=== PATIENT | female | born 1990 | race Native Hawaiian/Other Pacific Islander ===

== ENCOUNTER 2024-06-15 10:01 | Emergency (ER) | payer SELFPAY ==
--- OUTSIDE RECORDS SUMMARY | 2024-06-15 10:03 | XMS_ITS | Clinical Summary ---
Author Organization [facility] Address [address] [place] [address] Care Team Providers Care Copra Sampler Name Role Phone Pcp, No Primary Care Provider Unavailabl e Allergies No known active allergies Medications fluconazole (DIFLUCAN) 100 mg tabletIndicatio ns:Yeast vaginitis Take 1 Tablet (100 mg) by mouth once daily for 2 days. Take 48 hours apart. 2 Tablet 05/16/2024 5 metroNIDAZOLE (FLAGYL) 500 mg tabletIndicatio ns:Bacterial vaginosis Take 1 Tablet (500 mg) by mouth two times daily for 10 days. 20 Tablet 05/16/2024 5 Active Problems Problem Noted Date Diagnosed Date Breech presentation at 11/29/2017 Pancreatitis 02/16/2014 Elevated LFTs 01/15/2014 Resolved Problems Problem Noted Date Diagnosed Date Resolved Date 38 weeks gestation of 11/29/2017 01/16/2018 Miscarriage 11/26/2016 11/29/2017 Cholelithiasis with acute cholecystitis 02/19/2014 11/29/2017 Gallstones 01/15/2014 11/29/2017 Routine general medical exam ination at a health care facility 02/27/2013 01/16/2018 Supervision of other normal 06/25/2012 02/27/2013 Overview (11/14/2012): Planned and happy. GBBS positive with first . We will treat with this . Having a boy. Briefly homeless - working with the [facility] on housing 11/14/12. Encounters Date Type Department Care Team Description 05/16/2024 Telephone [facility] [address] [facility] [address] Susy Hyde, SHAYNA Results 05/16/2024 Orders Only [facility] [address] [facility] [place] [address] Susy Hyde NP <No scans attached> 05/15/2024 3:55 PM DATA ENGINEER - 05/15/2024 11:59 PM DATA ENGINEER Hospital Encounter [facility] [address] [facility] [place] [address] Anjali Schroeder NP Menorrhagia with irregular cycle 05/15/2024 2:20 PM DATA ENGINEER Office Visit [facility] [address] [facility] [place] [address] Anjali Schroeder NP Menses Problem (Patient presents to ambulatory urgent care today with C/O having a very heavy menses onset 05/07/2024. She had a normal menses 2 weeks ago that last 3 days. She is having more cramping and fatigue. She is also nauseated and having hot flashes. /) 05/15/2024 Travel 04/02/2024 3:00 PM DATA ENGINEER Office Visit [facility] [address] [facility] [place] [address] Kailey Roberson, OD Eye Exam 04/02/2024 Travel from Last 3 Months Immunizations Name Administration Dates Next Due DTP 11/14/1994, 1,06/20/1989,04/18/1989, 02/19/1989 Hepatitis B (Peds) 05/23/2005,01/23/2002, 001 Human Papilloma Virus Vaccine 04/09/2012 Influenza, IIV3 (Age >=3 years) 01/07/2013,04/04,01/18/2010 Influenza, IIV4 01/16/2018,05/21/2017,02/18/2014 MMR 05/23/2005,03/21/1990 Oral Polio Vaccine 11/14/1994,07/19/1990, 989,02/19/1989 Td (Age >=7 Years) 05/23/2005 Tdap 09/18/2017,06/25/2012 Family History Medical History Relation Name Comments Diabetes Maternal Grandfather Heart Disease Maternal Grandfather Hypertension Maternal Grandfather Diabetes Maternal Grandmother Hypertension Maternal Grandmother Diabetes Paternal Grandfather Diabetes Paternal Grandmother Relation Name Status Comments Maternal Grandfather Maternal Grandmother Paternal Grandfather Paternal Grandmother Social History Tobacco Use Types Packs/Day Years Used Date Smoking Tobacco: Every Day Cigarettes Smokeless Tobacco: Never Tobacco Cessation:Ready to Q uit: Not Asked; Counseling Given: Not Answered Comments:Patient educational material offered: onset 12/30, thinks about quitting Alcohol Use Standard Drinks/Week Comments Not Currently 0 (1 standard drink = 0.6 oz pur e alcohol) occasionally PHQ-2 Answer Date Recorded PHQ-2 Score 6 06/24/2018 Social Connections Answer Date Recorded Do you often feel lonely or isolated from those around you? 4 11/27/2023 Financial Resource Strain Answer Date R ecorded Difficulty of Paying Living Expenses 3 12/26/2023 Difficulty of Paying Living Expenses Not on file 12/26/2023 Food Insecurity Answer Date Recorded Do you worry your food will run out before you are able to buy more? 1 11/27/2023 Transportation Needs Answer Date Record ed Does lack of transportation keep you from medica l appointments? 1 11/27/2023 Does lack of transportation keep you from work, meetings or getting things that you need? 1 11/27/2023 Housing Stability Answer Date Recorded What is your housing situation today? 1 11/27/2023 Utilities Answer Date Recorded Do you have trouble paying f or utilities (for example, heat, electricity, water, phone)? 1 11/27/2023 Comments No Sex and Gender Information Value Date Recorded Sex Assigned at Not on file Legal Sex Female 7:00 AM DATA ENGINEER Gender Identity Not on file Sexual Orientation Not on file Occupation Industry Job Start Date Job End Date [employer] Not on file Not on file Not on file Not on file Not on file Not on file Not on file Obstetrics History Para Term AB IAB SAB Ectopic Multiple Livin g Live Births 5 3 3 1 1 3 3 Date Outcome GA Total Labor Labor/2nd/3rd Weight Sex Type Anes PTL Mildred A1 A5 Name Clin 2007 SAB 8w0 d U SPONTA NEOUS Genera l Demis e Complications:None 2008 Term 39w 0d 2.98 kg (6 lb 9 oz) F Vag Livin g Caram ia Delivery Location:[place] 2012 Term 37w 3d 2.89 kg (6 lb 6 oz) M Vag Livin g 8 9 Lelan d [place] Delivery Location:[facility] 2017 Term 38w 5d 3.53 kg (7 lb 12.7 oz) F CS-LTr anv Spinal N Livin g 8 9 PORRA S,BG MELANIA Macedo Complications:None Delivery Location:[facility] Last Filed Vital Signs Vital Sign Reading Time Taken Comments Blood Pressure 121/78 05/15/2024 3:12 PM DATA ENGINEER Pulse 66 05/15/2024 3:12 PM DATA ENGINEER Temperature 36.8 C (98.2 F) 05/15/2024 3:12 PM DATA ENGINEER Respiratory Rate 14 05/15/2024 3:12 PM DATA ENGINEER Oxygen Saturation 99% 05/15/2024 3:12 PM DATA ENGINEER Inhaled Oxygen Concentration - - Weight 78.5 kg (173 lb) 05/15/2024 3:12 PM DATA ENGINEER Height 165.1 cm (5' 5) 08/12/2022 8:20 PM CDT Body Mass Index 28.79 08/12/2022 8:20 PM CDT Plan of Treatment Health Maintenance Due Date Last Done Comments Hepatitis C screening for ag e 18-79 2006 Pneumococcal series for age 6-49 (1 of 2 - PCV) 12/18/2007 Depression screening for age 12+ 01/16/2019 01/16/2018, 01/16/2018, 11/09/2017, Additional history exists BMI (ht and wt on same day) for age 18+ 11/30/2020 12/01/2019, 11/09/2017, 10/11/2016 Pap test for age 21-65 07/23/2023 , 07/22/2020, 05/21/2017, Additional history exists COVID-19 vaccine series ( season) 2023 04/12/2021, 09/22/2020, 08/25/2020 Influenza for age 9-49 12/23/2023 8, 05/21/2017, 02/18/2014, Additional history exists Tetanus booster 09/19/2027 09/18/2017, 08/2012, 05/23/2005 Tdap Completed 09/18/2017, 06/25/2012 HIV for age 15-65 Completed 12/01/2019, , 06/25/2012 Procedures Procedure Name Priority Date/Time Associated Diagnosis Comments GC CHLAMYDIA TRACH PROBE Routine 05/15/2024 5:09 PM DATA ENGINEER Menorrhagia with irregular cycle TRICHOMONAS, MANDO, AND BACTERIAL VAGINOSIS BY LI Routine 05/15/2024 5:09 PM DATA ENGINEER Menorrhagia with irregular cycle URINE CULTURE Add On 05/15/2024 4:50 PM DATA ENGINEER Menorrhagia with irregular cycle Irregular menstrual bleeding URINALYSIS MICROSCOPIC STAT 05/15/2024 4:50 PM DATA ENGINEER Menorrhagia with irregular cycle URINE STAT 05/15/2024 4:50 PM DATA ENGINEER Menorrhagia with irregular cycle UA W/ SEDIMENT EXAM REFLEXED PER CRITERIA STAT 05/15/2024 4:50 PM DATA ENGINEER Menorrhagia with irregular cycle CBC WITH AUTO DIFFERENTIAL STAT 05/15/2024 4:38 PM DATA ENGINEER Menorrhagia with irregular cycle BASIC METABOLIC PANEL STAT 05/15/2024 4:38 PM DATA ENGINEER Menorrhagia with irregular cycle CBC WITH AUTO DIFFERENTIAL STAT 05/15/2024 4:38 PM DATA ENGINEER Menorrhagia with irregular cycle US PELVIS COMPLETE TA AND TV STAT 05/15/2024 4:30 PM DATA ENGINEER Menorrhagia with irregular cycle TORCH STRAIGHTENER THIN PREP PAP SCREEN IMAGED Routine 07/22/2020 3:15 PM CDT ANTI HIV 1/2 Routine 12/01/2019 5:05 PM CDT Encounter for supervision of other normal in first trimester from Last 3 Months or Most Recently Relevant to Health Maintenance Results * (ABNORMAL) TRICHOMONAS, MANDO, AND BACTERIAL VAGINOSIS BY LI (05/15/2024 5:09 PM DATA ENGINEER) MANDO SPECIES Positive(A) Negative 05/16/19 5:09 AM DATA ENGINEER [facility] MANDO GLABRATA Negative Negative 05/16/2024 5:09 AM DATA ENGINEER [facility] TRICHOMONAS VVA Positive(A) Negative 05/16/19 5:09 AM DATA ENGINEER [facility] BACTERIAL VAGINOSIS Positive(A) Negative 05/16/2024 5:09 AM DATA ENGINEER [facility] Other VAGINAL SWAB / Unknown Non-Blood / Unknown 05/15/2024 5:09 PM DATA ENGINEER 05/15/2024 5:31 PM DATA ENGINEER us Anjali E Furlong RIVET HOLE MACHINE OPERATOR MICROBIOLOGY Final Result Performing Organization Address City/[facility]/ZIP Co de Phone Number [facility] [address] [place] [address], [place] * Vaginal GC CHLAMYDIA TRACH PROBE (05/15/2024 5:09 PM DATA ENGINEER) CHLAMYDIA PROBE Negative 5:36 AM DATA ENGINEER [facility] N GONORRHOEAE PROBE Negative 05/16/2024 5:36 AM DATA ENGINEER [facility] Other VAGINAL SWAB / Unknown Non-Blood / Unknown 05/15/2024 5:09 PM DATA ENGINEER 05/15/2024 5:31 PM DATA ENGINEER us Anjali E Furlong RIVET HOLE MACHINE OPERATOR MICROBIOLOGY Final Result Performing Organization Address City/[facility]/ZIP Co de Phone Number [facility] [address] [place] [phone], [place] * (ABNORMAL) URINALYSIS MICROSCOPIC (05/15/2024 4:50 PM DATA ENGINEER) RBC 6-10(A) 0-2, None Seen /HPF 05/15/2024 6:24 PM DATA ENGINEER [facility] WBC 0-2 0-2, 3-5, None Seen /HPF 05/15/2024 6:24 PM DATA ENGINEER [facility] BACTERIA Many(A) None Seen, Rare, Few Bacteria/H PF 05/15/2024 6:24 PM DATA ENGINEER [facility] EPITHELIAL CELLS Few None Seen, Few Epi/HPF 05/15/2024 6:24 PM DATA ENGINEER [facility] Urine URINE SPECIMEN / Unknown Non-Blood / Unknown 05/15/2024 4:50 PM DATA ENGINEER 05/15/2024 4:50 PM DATA ENGINEER us Anjali E Furlong RIVET HOLE MACHINE OPERATOR URINE Final Result Performing Organization Address [facility]/ZIP Co de Phone Number [facility] [address] [place] [phone] * URINE CULTURE (05/15/2024 4:50 PM DATA ENGINEER) CULTURE <10,000 CFU/mL multiple organisms 05/16/2024 3:01 PM DATA ENGINEER [facility] Urine URINE SPECIMEN / Unknown Non-Blood / Unknown 05/15/2024 4:50 PM DATA ENGINEER 05/15/2024 4:50 PM DATA ENGINEER us Anjali E Furlong RIVET HOLE MACHINE OPERATOR MICROBIOLOGY Final Result [facility] [address] [place] [address], [place] * (ABNORMAL) STAT Urinalysis w/ reflex to Microscopic (05/15/2024 4:50 PM DATA ENGINEER) COLOR Yellow Yellow Color 05/15/2024 5:32 PM DATA ENGINEER [facility] CLARITY Clear Clear Clarity 05/15/2024 5:32 PM DATA ENGINEER [facility] SPECIFIC GRAVITY,URINE 1.020 1.010, 1.015, 1.020, 1.025 05/15/2024 5:32 PM [facility] PH,URINE 7.0 6.0, 7.0, 8.0, 5.5, 6.5, 7.5, 8.5 05/15/2024 5:32 PM [facility] UROBILINOGEN, QUALITATIVE Normal Normal EU/dl 05/15/2024 5:32 PM [facility] PROTEIN, URINE Negative Negative mg/dL 05/15/2024 5:32 PM [facility] GLUCOSE, URINE Negative Negative mg/dL 05/15/2024 5:32 PM [facility] KETONES,URINE Negative Negative mg/dL 05/15/2024 5:32 PM [facility] BILIRUBIN,URI NE Negative Negative 05/15/2024 5:32 PM [facility] OCCULT BLOOD,URINE Large(A) Negative 05/15/2024 5:32 PM [facility] NITRITE Negative Negative 05/15/2024 5:32 PM [facility] LEUKOCYTE ESTERASE Negative Negative 05/15/2024 5:32 PM [facility] Urine URINE SPECIMEN / Unknown Non-Blood / Unknown 05/15/2024 4:50 PM DATA ENGINEER 05/15/2024 4:50 PM DATA ENGINEER us Anjali E Furlong RIVET HOLE MACHINE OPERATOR URINE Final Result Performing Organization Address [facility]/ZIP Co de Phone Number [facility] [address] [place] [phone] * URINE (05/15/2024 4:50 PM DATA ENGINEER) ,URIN E Negative Negative 05/15/2024 5:00 PM DATA ENGINEER [facility] Urine URINE SPECIMEN / Unknown Non-Blood / Unknown 05/15/2024 4:50 PM DATA ENGINEER 05/15/2024 4:50 PM DATA ENGINEER us Anjali E Furlong RIVET HOLE MACHINE OPERATOR URINE Final Result [facility] [address] [place] [address] * (ABNORMAL) CBC WITH AUTO DIFFERENTIAL (05/15/2024 4:38 PM [facility]) WHITE BLOOD COUNT 9.5 4.5 - 11.0 thou/cu mm 05/15/2024 4:58 PM [facility] RED BLOOD COUNT 4.92 4.00 - 5.20 mil/cu mm 05/15/2024 4:58 PM [facility] HEMOGLOBIN 14.0 12.0 - 16.0 g/dL 05/15/2024 4:58 PM [facility] HEMATOCRIT 43.4 33.0 - 51.0 % 05/15/2024 4:58 PM [facility] MCV 88 80 - 100 fL 05/15/2024 4:58 PM [facility] MCH 28.5 26.0 - 34.0 pg 05/15/2024 4:58 PM [facility] MCHC 32.3 32.0 - 36.0 g/dL 05/15/2024 4:58 PM [facility] RDW 14.2 11.5 - 15.5 % 05/15/2024 4:58 PM [facility] PLATELET COUNT 238 140 - 440 thou/cu mm 05/15/2024 4:58 PM [facility] MPV 10.1 6.5 - 11.0 fL 05/15/2024 4:58 PM [facility] % NEUT 55.1 % 05/15/2024 4:58 PM [facility] % LYMPH 36.4 % 05/15/2024 4:58 PM [facility] % MONO 6.6 % 05/15/2024 4:58 PM [facility] % EOS 1.5 % 05/15/2024 4:58 PM [facility] % BASO 0.4 % 05/15/2024 4:58 PM [facility] ABSOLUTE NEUTROPHILS 5.3 1.7 - 7.0 thou/cu mm 05/15/2024 4:58 PM [facility] ABSOLUTE LYMPHOCYTES 3.5(H) 0.9 - 2.9 thou/cu mm 05/15/2024 4:58 PM [facility] ABSOLUTE MONOCYTES 0.6 <0.9 thou/cu mm 05/15/2024 4:58 PM [facility] ABSOLUTE EOSINOPHILS 0.1 <0.5 thou/cu mm 05/15/2024 4:58 PM [facility] ABSOLUTE BASOPHILS 0.0 <0.3 thou/cu mm 05/15/2024 4:58 PM [facility] Blood BLOOD SPECIMEN / Unknown [facility] Collect / Unknown 05/15/2024 4:38 PM DATA ENGINEER 05/15/2024 4:38 PM DATA ENGINEER us Anjali E Furlong RIVET HOLE MACHINE OPERATOR HEMATOLOGY Final Result [facility] [address] [place] [address] * (ABNORMAL) STAT Basic Metabolic Panel BMP (05/15/2024 4:38 PM DATA ENGINEER) SODIUM 141 136 - 145 mmol/L 05/15/2024 5:13 PM [facility] POTASSIUM 4.4 3.5 - 5.1 mmol/L 05/15/2024 5:13 PM [facility] CHLORIDE 105 98 - 107 mmol/L 05/15/2024 5:13 PM [facility] CO2,TOTAL 27 22 - 29 mmol/L 05/15/2024 5:13 PM [facility] ANION GAP 9 5 - 18 05/15/2024 5:13 PM [facility] GLUCOSE 96 70 - 99 mg/dL 05/15/2024 5:13 PM [facility] CALCIUM 9.9 8.8 - 10.4 mg/dL 05/15/2024 5:13 PM [facility] Comment: Reference ranges for this test were updated on 02/26/2024 to reflect our healthy population more accurately. Reference range changes are not retroactively applied to results, but previous results using the same methodology can be interpreted in the context of the new reference range. BUN 16 6 - 20 mg/dL 05/15/2024 5:13 PM [facility] CREATININE 0.73 0.50 - 0.90 mg/dL 05/15/2024 5:13 PM [facility] BUN/CREAT RATIO 22(H) 10 - 20 5:13 PM [facility] eGFR >90 >90 mL/min/1.7 3m2 05/15/2024 5:13 PM [facility] Comment:As of 2021, eG FR is calculated by the CKD-EPI creatinine equation without race adjustment. eGFR can be influenced by muscle mass, exercise, and diet. The reported eGFR is an estimation only and is only applicable if the renal function is stable. Blood BLOOD SPECIMEN / Unknown [facility] Collect / Unknown 05/15/2024 4:38 PM DATA ENGINEER 05/15/2024 4:38 PM DATA ENGINEER us Anjali Schroeder RIVET HOLE MACHINE OPERATOR CHEMISTRY Final Result [facility] [address] [place] [address] * US PELVIS COMPLETE TA AND TV (05/15/2024 4:30 PM DATA ENGINEER) Anatomical Region Laterality Modality Pelvis Ultrasound 05/15/2024 5:00 PM DATA ENGINEER Impressions 05/15/2024 5:00 PM DATA ENGINEER 1. Demonstration of a dominant right ovarian follicle measuring 2.3 centimeters. Otherwise, unremarkable pelvic sonogram. Dictated by Rupert James MD @ 05/15/2024 5:00:48 PM (Electronically Signed) Narrative 05/15/2024 5:00 PM DATA ENGINEER For Patients: As a result of the Century Cures Act, medical imaging exams and procedure reports are released immediately into your electronic medical record. You may view this report before your referring provider. If you have questions, please contact your health care provider. INDICATION: Menorrhagia with irregular cycle TECHNIQUE: Ultrasound pelvis transabdominal and transvaginal for better assessment or to better visualize the endometrium. Real-time sonographic images with spectral and color Doppler imaging of the ovaries were obtained. COMPARISON: None FINDINGS: Uterus: 10.2 x 6.8 x 5.1 cm. Normal echotexture of the myometrium. No masses. Endometrium: Transvaginal imaging was performed to better evaluate the endometrium. Endometrial thickness measures 11 mm. No sign of endometrial mass or fluid. Right ovary measures 3.7 x 3.5 x 2.8 cm and left ovary measures 2.9 x 2.2 x 1.0 cm. There is likely a dominant follicle within the right ovary. Normal arterial and venous blood flow is demonstrated in both ovaries. Cul-de-sac: No significant free fluid. Procedure Note Rupert James MD - 05/15/2024 For Patients: As a result of the Cures Act, medical imagingexams and procedure reports are released immediately into your electronicmedical record. You may view this report before your referring provider.If you have questions, please contact your health care provider. INDICATION: Menorrhagia with irregular cycle TECHNIQUE: Ultrasound pelvis transabdominal and transvaginal for better assessment orto better visualize the endometrium. Real-time sonographic images withspectral and color Doppler imaging of the ovaries were obtained. COMPARISON: None FINDINGS: Uterus: 10.2 x 6.8 x 5.1 cm. Normal echotexture of the myometrium. Nomasses. Endometrium: Transvaginal imaging was performed to better evaluate theendometrium. Endometrial thickness measures 11 mm. No sign ofendometrial mass or fluid. Right ovary measures 3.7 x 3.5 x 2.8 cm and left ovary measures 2.9 x 2.2x 1.0 cm. There is likely a dominant follicle within the right ovary.Normal arterial and venous blood flow is demonstrated in both ovaries. Cul-de-sac: No significant free fluid. IMPRESSION: 1. Demonstration of a dominant right ovarian follicle measuring 2.3centimeters. Otherwise, unremarkable pelvic sonogram. Dictated by Rupert James MD @ 05/15/2024 5:00:48 PM (Electronically Signed) us Anjali Schroeder NP US Final Result * TORCH STRAIGHTENER THIN PREP PAP SCREEN IMAGED (07/22/2020 3:15 PM CDT) Case Report Gynecologic Cytology Report Case: [id number] Authorizing Provider: Baylee Polk MD Collected: 07/22/2020 1515 [facility]ing [facility] Received: 07/23/2020 1822 First Screen: Malachi Valdez Specimen: TORCH STRAIGHTENER ThinPrep Vial Screening, Cervical/Vaginal 08/03/2020 1:00 PM CDT [facility] [place] [facility] INTERPRETATION/ RESULT NEGATIVE FOR INTRAEPITHELIAL LESION OR MALIGNANCY (NIL) (none) 08/03/2020 1:00 PM CDT [facility] NISM(S) Shift in delfin suggestive of bacterial vaginosis 08/03/2020 1:00 PM CDT [facility] SPECIMEN ADEQUACY Satisfactory for evaluation Endocervical component present 08/03/2020 1:00 PM CDT [facility] HPV REQUEST HPV and PAP 08/03/2020 1:00 PM CDT [facility] Menstrual Status 08/03/2020 1:00 PM CDT [facility] Additional Information 08/03/2020 1:00 PM CDT [facility] Comment: Interpreted at [facility] - [address] [place] [id number] Automated Review Successful 08/03/2020 1:00 PM CDT [facility] Comment:Specimen processed s uccessfully by automated save all operator device, ThinPrep Imaging System, [employer] ANCILLARY TESTING TORCH STRAIGHTENER HPV Ordered, Please see separate report 08/03/2020 1:00 PM CDT [facility] Note The pap test is a screening technique, not a diagnostic procedure. It is used primarily to screen for squamous cancers and precursor lesions. Published studies have shown that it is subject to both false negative and false positive results. The pap test should not be used as the sole means to diagnose or exclude pre-malignant and malignant lesions. 08/03/2020 1:00 PM CDT [facility] Other (Cervical/Vagina l) 07/22/2020 3:15 PM CDT 07/23/2020 6:22 PM CDT us Baylee Polk MD PATHOLOGY/CYTOLOGY Final Result [facility] [address] [place] [address], [place] * ANTI HIV 1/2 (12/01/2019 5:05 PM CDT) HIV-1/HIV-2 ANTIBODY Non-Reacti ve Non-Reacti ve 12/02/2019 1:58 PM CDT [facility] Comment:HIV-1 p24 and HIV-1/ HIV-2 Ab not detected. Blood BLOOD SPECIMEN / Unknown Venipuncture / Unknown 12/01/2019 5:05 PM CDT 12/01/2019 5:06 PM CDT us Lizette Goldsmith MD SEND OUTS Final Resul t [facility] [address] [place] [address], from Last 3 Months or Most Recently Relevant to Health Maintenance Insurance [address] [place] [id number] [facility] [place] [place] [phone] [place] [id number] * Guarantor: [facility] [employer] Account Type Relation to Patient Date of Phone Billing Address Occ Health/French Other [place] [facility] [place] [address] [facility] [place] [phone] Advance Directives * Full Code (Latest Code Status on File) Date Activated Date Inactivated Comments 11/29/2017 4:52 AM 12/01/2017 6:40 PM Question Answer Comments Code Status Discussion: Discussed * Full Code Date Activated Date Inactivated Comments 11/27/2016 4:28 AM 11/27/2016 7:10 AM * Full Code Date Activated Date Inactivated Comments 11/27/2016 1:32 AM 11/27/2016 4:28 AM Question Answer Comments Code Status Discussion: Not Discussed * Full Code Date Activated Date Inactivated Comments 02/18/2014 3:58 PM 02/20/2014 12:39 AM * Full Code Date Activated Date Inactivated Comments 02/16/2014 8:17 PM 02/18/2014 3:58 PM Care Teams [employer] Relationship Specialty Start Date End Date Pcp, No . PCP - General 08/12/22
[2024-06-15 10:13] VITALS: BP 116/84; PULSE 86; RESP 18; TEMP 37.1; O2SAT 99; BMI 29.2
--- NOTE | 2024-06-15 10:31 | CRLHL7_ITS ---
For Patients: As a result of the Century Cures Act, medical imaging exams and procedure reports are released immediately into your electronic medical record. You may view this report before your referring provider. If you have questions, please contact your health care provider. INDICATION: Abnormal frequent vaginal bleeding intermittent for 2 months TECHNIQUE: Ultrasound pelvis transabdominal and transvaginal for better assessment or to better visualize the endometrium. Real-time sonographic images with spectral and color Doppler imaging of the ovaries were obtained. COMPARISON: None FINDINGS: Uterus: 9.7 x 5.7 x 6.7 cm. Mildly bulky, heterogeneous appearance of the anterior fundal endometrium. Demonstration of minimal nabothian cystic changes in the lower uterine segment. Demonstration of anterior myometrial defect commensurate with prior section. Endometrium: Transvaginal imaging was performed to better evaluate the endometrium. Endometrial thickness measures 10.7 mm. No sign of endometrial mass or fluid. Right ovary measures 3.6 x 2.7 x 3.4 cm and left ovary measures 4.7 x 3.6 x 4.3 cm. There is demonstration of a 3.7 centimeter cyst within the left ovary. Normal arterial and venous blood flow is demonstrated in both ovaries. Cul-de-sac: No significant free fluid. IMPRESSION: 1. Mildly heterogeneous myometrium which may represent minimal fibroid changes. Nabothian cystic changes of the lower uterine segment. 2. Mildly indistinct secretory appearing endometrium without evidence of obvious mass. Dictated by Rupert James MD @ 06/15/2024 1:32:18 PM (Electronically Signed)
--- NOTE | 2024-06-15 10:47 | ED_ITS ---
HPI - Female Genitourinary General Date Seen: 06/15/24 Chief complaint: Vaginal Bleeding Stated complaint: abnormal bleeding Time Seen by Provider: 06/15/24 10:16 Source: patient Mode of arrival: ambulatory Limitations: no limitations History of Present Illness HPI Narrative: Patient is a 33-year-old female presenting to emergency department for abnormal vaginal bleeding. States she initially had vaginal bleeding for a week then stop for 3 days and has the started up again. It restarted 4 days ago. She was on her menstrual period until the . States it started as spotting and has been getting worse. States she goes through a tampon every 3-4 hours. States same symptoms occurred 1 month ago were she had her menstrual. He is that severe than normal then would stop for 3 days then she will start bleeding again. That time it lasted for another week. Did go to [facility] at that time was told she had a yeast infection and bacterial vaginosis. Denies chest pain, shortness of breath, lightheadedness, dizziness, weakness, numbness, abdominal pain. Does states she has a very mild dysuria. States she knows she is not . Does have some right lower abdominal cramping that is different from her usual menstrual period cramping. She had the same cramping sensation 1 month ago. Prior to last month she has never had symptoms like this before. No other concerns noted. Related Data Home Medications ?Medication ?Instructions ?Recorded ?Confirmed No Known Home Medications 06/15/24 06/15/24 Allergies Allergy/AdvReac Type Severity Reaction Status Date / Time No Known Drug Allergies Allergy Verified 06/15/24 10:19 Review of Systems Status of ROS: Reports: 10 or more systems reviewed and unremarkable except as noted in History and below [facility] Social History Smoking Status: Current every day smoker How often do you have a drink containing alcohol: never AUDIT-C Alcohol total score: 0 Non-prescribed substance use: denies use Exam Narrative: Exam Narrative: Const: Well-nourished, Well-developed, in mild distress Eyes: PERRL, no conjunctival injection, and symmetrical lids HENT: Atraumatic external nose and ears. Moist mucous membranes. Neck: Symmetric, trachea midline, No thyromegaly. CVS: RRR, No murmurs or gallops. Peripheral pulses 2+ and equal in all extremities RESP: Unlabored respiratory effort. Clear to auscultation bilaterally. GI: Nontender/Nondistended, No rebound or guarding. MSK:Extremities w/o deformity, Normal Active ROM Skin: Warm, Dry. No rashes or lesions. Neuro: Normal Muscle tone, No focal neurological deficits. Psych: Awake, Alert, & Oriented x3. Appropriate mood and affect. Const: Vital Signs, click to edit/add: Vital Signs - 24 hr 06/15/24 10:13 Temperature 98.7 F Pulse Rate [Pulse Oximeter] 86 Respiratory Rate 18 Blood Pressure [Ri ght Upper Arm] 116/84 Pulse Oximetry 99 Oxygen Delivery Me thod Room Air Course Vital Signs Vital signs: Initial Vital Signs Temperature 98.7 F 06/15/24 10:13 Temperature Source Temporal Artery Scan 06/15/24 10:13 Pulse Rate 86 06/15/24 10:13 Respiratory Rate 18 06/15/24 10:13 Blood Pressure 116/84 06/15/24 10:13 Blood Pressure Mean 94 06/15/24 10:13 Blood Pressure Position Sitting 06/15/24 10:13 Pulse Oximetry 99 06/15/24 10:13 Oxygen Delivery Method Room Air 06/15/24 10:13 Vital Signs Temperature 98.7 F 06/15/24 10:13 Pulse Rate 86 06/15/24 10:13 Respiratory Rate 18 06/15/24 10:13 Blood Pressure 116/84 06/15/24 10:13 Pulse Oximetry 99 06/15/24 10:13 Oxygen Delivery Method Room Air 06/15/24 10:13 Temperature 98.7 F 06/15/24 10:13 Pulse Rate 86 06/15/24 10:13 Respiratory Rate 18 06/15/24 10:13 Blood Pressure 116/84 06/15/24 10:13 Pulse Oximetry 99 06/15/24 10:13 Oxygen Delivery Method Room Air 06/15/24 10:13 MDM - Female Genitourinary MDM Narrative Medical decision making narrative: Patient is a 33-year-old female presenting to emergency department for abnormal vaginal bleeding and some pelvic cramping. She states she does not believe she is but there is still concern for ectopic until confirmed for that she is not . Will do an ultrasound either way to look for will could be causing her abnormal bleeding. With the also order a urinalysis CBC, BMP. Lab work shows no concerning findings. Ultrasound was done and shows mildly heterogeneous myometrium which may represent a fibroid and mildly indistinct secretory Endometrium without evidence of obvious mass. She has had very minimal bleeding since she arrived to the emergency department. She put on a pad after ultrasound and has had no drainage. At this point I believe she is safe for discharge. I did inform her to follow up with Gynecology this week. She states she understands. Lab Data Labs: Lab Results 06/15/24 06/15/24 Range/Units 10:44 Unknown WBC 5.43 (4.50-11.00) K/uL RBC 4.90 (4.00-5.20) m/uL Hgb 14.1 (12.0-16.0) gm/dL Hct 43.0 (33.0-51.0) % MCV 88 (80-100) fL MCH 29 (26-34) pg MCHC 33 (32-36) gm/dL RDW Coeff of [place]mar[place] 13.4 (11.5-15.5) % Plt Count 209 (140-440) K/uL Neut % (Auto) 64.1 (42.0-72.0) % Lymph % (Auto) 25.2 (20-44) % [place] % (Auto) 7.4 (0.0-11.0) % Eos % (Auto) 2.2 (0.0-7.0) % Baso % (Auto) 0.9 (0.0-3.0) % Neut # (Auto) 3.48 (1.7-7.0) K/uL Lymph # (Auto) 1.37 (0.90-2.90) K/uL [place] # (Auto) 0.40 (0.00-0.90) K/UL Eos # (Auto) 0.12 (0.00-0.50) K/uL Baso # (Auto) 0.05 (0.00-0.30) K/uL Abs Immat Gran (auto) 0.01 (0.00-0.30) K/uL Imm/Tot Granulo (auto) 0.2 % Sodium 138 (135-149) mmol/L Potassium 4.2 (3.6-5.1) mmol/L Chloride 104 (96-114) mmol/L Carbon Dioxide 27 (20-32) mmol/L Anion Gap 7 (7-15) mEq/L BUN 11 (5-24) mg/dL Creatinine 0.5 (0.5-1.5) mg/dL Estimated Creat Clear 135.61 Estimated GFR 125 ml/min Glucose 98 (60-115) mg/dL Calcium 9.4 (8.4-10.6) mg/dL Urine Color Yellow (Yellow) Urine Appearance Clear (Clear) Urine pH 6.0 (5.0-8.5) Ur Specific [place] 1.010 (1.000-1.030) Urine Protein Negative (Negative) Urine Glucose (UA) Negative (Negative) Urine Ketones Negative (Negative) Urine Blood Trace-intact A (Negative) Urine Nitrite Negative (Negative) Urine Bilirubin Negative (Negative) Urine Urobilinogen 0.2 (0.2-1.0) Ur Leukocyte Esterase Negative (Negative) Urine RBC 0-2 (0-2) Urine WBC 0-2 (0-5) Ur Squamous Epith Cells Few (None-Few) Urine Bacteria None (None) Urine HCG, Qual Negative (Negative) Discharge Plan Discharge Clinical Impression: Vaginal bleeding Patient Disposition: Home, Self-Care Condition: Stable Instructions: Abnormal (Dysfunctional) Uterine Bleeding (ED) Additional Instructions: I recommend following up with motor and generator assembler for your vaginal bleeding. If you start going through 1 pad/tampon an hour return for re-evaluation. Also return for any other new or worsening symptoms. Prescriptions: No Action No Known Home Medications Follow Up/Referrals: Provider,Not a Local [Primary Care Provider] - Stand Alone Forms: [employer] Info Instructions
[2024-06-15 10:51] LABS: Basophils Absolute Auto 0.05 K/uL (0.00-0.30); Basophils Percent Auto 0.9 % (0.0-3.0); Eosinophils Absolute Auto 0.12 K/uL (0.00-0.50); Eosinophils Percent Auto 2.2 % (0.0-7.0); Hemoglobin* 14.1 gm/dL (12.0-16.0); Immature Granulocytes Abs Auto 0.01 K/uL (0.00-0.30); Immature Granulocytes Pct Auto 0.2 %; Lymphocytes Absolute Auto 1.37 K/uL (0.90-2.90); Lymphocytes Percent Auto 25.2 % (20-44); Mean Corpuscular HGB Conc 33 gm/dL (32-36); Mean Corpuscular Hemoglobin 29 pg (26-34); Mean Corpuscular Volume 88 fL (80-100); Monocytes Percent Auto 7.4 % (0.0-11.0); Neutrophils Absolute Auto 3.48 K/uL (1.7-7.0); Neutrophils Percent Auto 64.1 % (42.0-72.0); Platelet Count* 209 K/uL (140-440); RDW Coefficient of Variation % 13.4 % (11.5-15.5); White Blood Count* 5.43 K/uL (4.50-11.00)
[2024-06-15 10:55] LABS: Appearance Urine Clear (Clear); Bilirubin Urine Negative (Negative); Blood Urine Trace-intact (Negative); Color Urine Yellow (Yellow); Glucose Urine Negative (Negative); Ketones Urine Negative (Negative); Leukocyte Esterase Urine Negative (Negative); Nitrite Urine Negative (Negative); Protein Urine Negative (Negative); Urobilinogen Urine 0.2 (0.2-1.0)
[2024-06-15 10:55] LABS: Slide Review Reflex No
[2024-06-15 10:58] LABS: Ur HCG Qualitative* Negative (Negative)
--- OUTSIDE RECORDS SUMMARY | 2024-06-15 10:58 | XMS_ITS | Clinical Summary ---
Author Organization [employer] [facility] Address [address] [place] [id number] Care Team Providers Care Marble Machine Operator Name Role Phone Pcp, No Primary Care [...] boy. Briefly homeless - working with the [facility] on housing 11/14/12. Encounters Date Type Department Care Team Description 05/16/2024 Telephone [facility] 100 [facility] [address] Susy Hyde, SHAYNA Results 05/16/2024 Orders Only [facility] 100 [facility] [place] [address] Susy Hyde NP <No scans attached> 05/15/2024 3:55 PM WATER QUALITY TESTER - 05/15/2024 11:59 PM WATER QUALITY TESTER Hospital Encounter [facility] 200 [facility] [place] [address] Anjali Schroeder NP Menorrhagia with irregular cycle 05/15/2024 2:20 PM WATER QUALITY TESTER Office Visit [facility] [address] Anjali Schroeder NP Menses Problem (Patient presents to ambulatory urgent care today with C/O having a very heavy menses onset 05/07/2024. She had a normal menses 2 weeks ago that last 3 days. She is having more cramping and fatigue. She is also nauseated and having hot flashes. /) 05/15/2024 Travel 04/02/2024 3:00 PM WATER QUALITY TESTER Office Visit [facility] Eye Services 100 [facility] [place] [facility] [address] Kailey Roberson, OD Eye Exam 04/02/2024 Travel [...] on file Legal Sex Female 7:00 AM WATER QUALITY TESTER Gender Identity Not on file Sexual Orientation [...] F Vag Livin g Caram ia Delivery Location:[place] 2012 Term 37w 3d 2.89 kg (6 lb 6 oz) M Vag Livin g 8 9 L[place] d [place] Delivery Location:[facility] 2017 Term 38w 5d 3.53 kg (7 lb 12.7 oz) F CS-LTr anv Spinal N Livin g 8 9 PORRA S,BG MELANIA Macedo Complications:None Delivery Location:[facility] ([facility] (OR[facility] Last Filed Vital Signs Vital Sign Reading Time Taken Comments Blood Pressure 121/78 05/15/2024 3:12 PM WATER QUALITY TESTER Pulse 66 05/15/2024 3:12 PM WATER QUALITY TESTER Temperature 36.8 C (98.2 F) 05/15/2024 3:12 PM WATER QUALITY TESTER Respiratory Rate 14 05/15/2024 3:12 PM WATER QUALITY TESTER Oxygen Saturation 99% 05/15/2024 3:12 PM WATER QUALITY TESTER Inhaled Oxygen Concentration - - Weight 78.5 kg (173 lb) 05/15/2024 3:12 PM WATER QUALITY TESTER Height 165.1 cm (5' 5) 08/12/2022 8:20 [...] CHLAMYDIA TRACH PROBE Routine 05/15/2024 5:09 PM WATER QUALITY TESTER Menorrhagia with irregular cycle TRICHOMONAS, MANDO, AND BACTERIAL VAGINOSIS BY LI Routine 05/15/2024 5:09 PM WATER QUALITY TESTER Menorrhagia with irregular cycle URINE CULTURE Add On 05/15/2024 4:50 PM WATER QUALITY TESTER Menorrhagia with irregular cycle Irregular menstrual bleeding URINALYSIS MICROSCOPIC STAT 05/15/2024 4:50 PM WATER QUALITY TESTER Menorrhagia with irregular cycle URINE STAT 05/15/2024 4:50 PM WATER QUALITY TESTER Menorrhagia with irregular cycle UA W/ SEDIMENT EXAM REFLEXED PER CRITERIA STAT 05/15/2024 4:50 PM WATER QUALITY TESTER Menorrhagia with irregular cycle CBC WITH AUTO DIFFERENTIAL STAT 05/15/2024 4:38 PM WATER QUALITY TESTER Menorrhagia with irregular cycle BASIC METABOLIC PANEL STAT 05/15/2024 4:38 PM WATER QUALITY TESTER Menorrhagia with irregular cycle CBC WITH AUTO DIFFERENTIAL STAT 05/15/2024 4:38 PM WATER QUALITY TESTER Menorrhagia with irregular cycle US PELVIS COMPLETE TA AND TV STAT 05/15/2024 4:30 PM WATER QUALITY TESTER Menorrhagia with irregular cycle TRANSPORT MANAGER THIN PREP PAP SCREEN IMAGED Routine 07/22/2020 3:15 PM CDT ANTI HIV 1/2 Routine 12/01/2019 5:05 PM CDT Encounter for supervision of other normal in first trimester from Last 3 Months or Most Recently Relevant to Health Maintenance Results * (ABNORMAL) TRICHOMONAS, MANDO, AND BACTERIAL VAGINOSIS BY LI (05/15/2024 5:09 PM WATER QUALITY TESTER) MANDO SPECIES Positive(A) Negative 05/16/19 5:09 AM WATER QUALITY TESTER [facility] MANDO GLABRATA Negative Negative 05/16/2024 5:09 AM WATER QUALITY TESTER [facility] TRICHOMONAS VVA Positive(A) Negative 05/16/19 5:09 AM WATER QUALITY TESTER [facility] BACTERIAL VAGINOSIS Positive(A) Negative 05/16/2024 5:09 AM WATER QUALITY TESTER [facility] Other VAGINAL SWAB / Unknown Non-Blood / Unknown 05/15/2024 5:09 PM WATER QUALITY TESTER 05/15/2024 5:31 PM WATER QUALITY TESTER us Anjali E Furlong COLLECTION SUPERVISOR MICROBIOLOGY Final Result Performing Organization Address City/[facility]/ZIP Co de Phone Number [facility] [address] [place] [address], [place] * Vaginal GC CHLAMYDIA TRACH PROBE (05/15/2024 5:09 PM WATER QUALITY TESTER) CHLAMYDIA PROBE Negative 5:36 AM WATER QUALITY TESTER [facility] N GONORRHOEAE PROBE Negative 05/16/2024 5:36 AM WATER QUALITY TESTER [facility] Other VAGINAL SWAB / Unknown Non-Blood / Unknown 05/15/2024 5:09 PM WATER QUALITY TESTER 05/15/2024 5:31 PM WATER QUALITY TESTER us Anjali E Furlong COLLECTION SUPERVISOR MICROBIOLOGY Final Result Performing Organization Address City/[facility]/ZIP Co de Phone Number [facility] [address] [place] [address], [place] * (ABNORMAL) URINALYSIS MICROSCOPIC (05/15/2024 4:50 PM WATER QUALITY TESTER) RBC 6-10(A) 0-2, None Seen /HPF 05/15/2024 6:24 PM WATER QUALITY TESTER [facility] WBC 0-2 0-2, 3-5, None Seen /HPF 05/15/2024 6:24 PM WATER QUALITY TESTER [facility] BACTERIA Many(A) None Seen, Rare, Few Bacteria/H PF 05/15/2024 6:24 PM WATER QUALITY TESTER [facility] EPITHELIAL CELLS Few None Seen, Few Epi/HPF 05/15/2024 6:24 PM WATER QUALITY TESTER [facility] Urine URINE SPECIMEN / Unknown Non-Blood / Unknown 05/15/2024 4:50 PM WATER QUALITY TESTER 05/15/2024 4:50 PM WATER QUALITY TESTER us Anjali E Furlong COLLECTION SUPERVISOR URINE Final Result Performing Organization Address [facility]/ZIP Co de Phone Number [facility] [address] [place] [phone] * URINE CULTURE (05/15/2024 4:50 PM WATER QUALITY TESTER) CULTURE <10,000 CFU/mL multiple organisms 05/16/2024 3:01 PM WATER QUALITY TESTER [facility] Urine URINE SPECIMEN / Unknown Non-Blood / Unknown 05/15/2024 4:50 PM WATER QUALITY TESTER 05/15/2024 4:50 PM WATER QUALITY TESTER us Anjali E Furlong COLLECTION SUPERVISOR MICROBIOLOGY Final Result [facility] [address] [place] [address], [place] * (ABNORMAL) STAT Urinalysis w/ reflex to Microscopic (05/15/2024 4:50 PM WATER QUALITY TESTER) COLOR Yellow Yellow Color 05/15/2024 5:32 PM WATER QUALITY TESTER [facility] CLARITY Clear Clear Clarity 05/15/2024 5:32 PM WATER QUALITY TESTER [facility] SPECIFIC GRAVITY,URINE 1.020 1.010, 1.015, 1.020, 1.025 05/15/2024 5:32 PM [facility] PH,URINE 7.0 6.0, 7.0, 8.0, 5.5, 6.5, 7.5, 8.5 05/15/2024 5:32 PM [facility] UROBILINOGEN, QUALITATIVE Normal Normal EU/dl 05/15/2024 5:32 PM [facility] PROTEIN, URINE Negative Negative mg/dL 05/15/2024 5:32 PM [facility] GLUCOSE, URINE Negative Negative mg/dL 05/15/2024 5:32 PM [facility] KETONES,URINE Negative Negative mg/dL 05/15/2024 5:32 PM [facility] BILIRUBIN,URI NE Negative Negative 05/15/2024 5:32 PM [facility] OCCULT BLOOD,URINE Large(A) Negative 05/15/2024 5:32 PM [facility] NITRITE Negative Negative 05/15/2024 5:32 PM [facility] LEUKOCYTE ESTERASE Negative Negative 05/15/2024 5:32 PM [facility] Urine URINE SPECIMEN / Unknown Non-Blood / Unknown 05/15/2024 4:50 PM WATER QUALITY TESTER 05/15/2024 4:50 PM WATER QUALITY TESTER us Anjali E Furlong COLLECTION SUPERVISOR URINE Final Result Performing Organization Address [facility]/ZIP Co de Phone Number [facility] [address] [place] [phone] * URINE (05/15/2024 4:50 PM WATER QUALITY TESTER) ,URIN E Negative Negative 05/15/2024 5:00 PM WATER QUALITY TESTER [facility] Urine URINE SPECIMEN / Unknown Non-Blood / Unknown 05/15/2024 4:50 PM WATER QUALITY TESTER 05/15/2024 4:50 PM WATER QUALITY TESTER us Anjali E Furlong COLLECTION SUPERVISOR URINE Final Result [facility] [address] [place] [address] * (ABNORMAL) CBC WITH AUTO DIFFERENTIAL (05/15/2024 4:38 PM [facility]) WHITE BLOOD COUNT 9.5 4.5 - 11.0 thou/cu mm 05/15/2024 4:58 PM [facility] RED BLOOD COUNT 4.92 4.00 - 5.20 mil/cu mm 05/15/2024 4:58 PM [facility] HEMOGLOBIN 14.0 12.0 - 16.0 g/dL 05/15/2024 4:58 PM [facility] HEMATOCRIT 43.4 33.0 - 51.0 % 05/15/2024 4:58 PM [facility] MCV 88 80 - 100 fL 05/15/2024 4:58 PM [facility] MCH 28.5 26.0 - 34.0 pg 05/15/2024 4:58 PM [facility] MCHC 32.3 32.0 - 36.0 g/dL 05/15/2024 4:58 PM [facility] RDW 14.2 11.5 - 15.5 % 05/15/2024 4:58 PM [facility] PLATELET COUNT 238 140 - 440 thou/cu mm 05/15/2024 4:58 PM [facility] MPV 10.1 6.5 - 11.0 fL 05/15/2024 4:58 PM [facility] % NEUT 55.1 % 05/15/2024 4:58 PM [facility] % LYMPH 36.4 % 05/15/2024 4:58 PM [facility] % MONO 6.6 % 05/15/2024 4:58 PM [facility] % EOS 1.5 % 05/15/2024 4:58 PM [facility] % BASO 0.4 % 05/15/2024 4:58 PM [facility] ABSOLUTE NEUTROPHILS 5.3 1.7 - 7.0 thou/cu mm 05/15/2024 4:58 PM [facility] ABSOLUTE LYMPHOCYTES 3.5(H) 0.9 - 2.9 thou/cu mm 05/15/2024 4:58 PM [facility] ABSOLUTE MONOCYTES 0.6 <0.9 thou/cu mm 05/15/2024 4:58 PM [facility] ABSOLUTE EOSINOPHILS 0.1 <0.5 thou/cu mm 05/15/2024 4:58 PM [facility] ABSOLUTE BASOPHILS 0.0 <0.3 thou/cu mm 05/15/2024 4:58 PM [facility] Blood BLOOD SPECIMEN / Unknown [facility] Collect / Unknown 05/15/2024 4:38 PM WATER QUALITY TESTER 05/15/2024 4:38 PM WATER QUALITY TESTER us Anjali E Furlong COLLECTION SUPERVISOR HEMATOLOGY Final Result [facility] [address] [place] [address] * (ABNORMAL) STAT Basic Metabolic Panel BMP (05/15/2024 4:38 PM WATER QUALITY TESTER) SODIUM 141 136 - 145 mmol/L 05/15/2024 5:13 PM [facility] POTASSIUM 4.4 3.5 - 5.1 mmol/L 05/15/2024 5:13 PM [facility] CHLORIDE 105 98 - 107 mmol/L 05/15/2024 5:13 PM [facility] CO2,TOTAL 27 22 - 29 mmol/L 05/15/2024 5:13 PM [facility] ANION GAP 9 5 - 18 05/15/2024 5:13 PM [facility] GLUCOSE 96 70 - 99 mg/dL 05/15/2024 5:13 PM [facility] CALCIUM 9.9 8.8 - 10.4 mg/dL 05/15/2024 5:13 PM [facility] Comment: Reference ranges for this test were updated on 02/26/2024 to reflect our healthy population more accurately. Reference range changes are not retroactively applied to results, but previous results using the same methodology can be interpreted in the context of the new reference range. BUN 16 6 - 20 mg/dL 05/15/2024 5:13 PM [facility] CREATININE 0.73 0.50 - 0.90 mg/dL 05/15/2024 5:13 PM [facility] BUN/CREAT RATIO 22(H) 10 - 20 5:13 PM [facility] eGFR >90 >90 mL/min/1.7 3m2 05/15/2024 5:13 PM [facility] Comment:As of 2021, eG FR is calculated by the CKD-EPI creatinine equation without race adjustment. eGFR can be influenced by muscle mass, exercise, and diet. The reported eGFR is an estimation only and is only applicable if the renal function is stable. Blood BLOOD SPECIMEN / Unknown [facility] Collect / Unknown 05/15/2024 4:38 PM WATER QUALITY TESTER 05/15/2024 4:38 PM WATER QUALITY TESTER us Anjali Schroeder COLLECTION SUPERVISOR CHEMISTRY Final Result [facility] [address] [place] [address] * US PELVIS COMPLETE TA AND TV (05/15/2024 4:30 PM WATER QUALITY TESTER) Anatomical Region Laterality Modality Pelvis Ultrasound 05/15/2024 5:00 PM WATER QUALITY TESTER Impressions 05/15/2024 5:00 PM WATER QUALITY TESTER 1. Demonstration of a dominant right ovarian follicle measuring 2.3 centimeters. Otherwise, unremarkable pelvic sonogram. Dictated by Rupert James MD @ 05/15/2024 5:00:48 PM (Electronically Signed) Narrative 05/15/2024 5:00 PM WATER QUALITY TESTER For Patients: As a result of the [...] Anjali Schroeder NP US Final Result * TRANSPORT MANAGER THIN PREP PAP SCREEN IMAGED (07/22/2020 3:15 PM CDT) Case Report Gynecologic Cytology Report Case: [id number] Authorizing Provider: Baylee Polk MD Collected: 07/22/2020 1515 Ordering Location: [facility] Received: 07/23/2020 1822 First Screen: Malachi Valdez Specimen: TRANSPORT MANAGER ThinPrep Vial Screening, Cervical/Vaginal 08/03/2020 1:00 PM CDT [facility] [employer] [facility] INTERPRETATION/ RESULT NEGATIVE FOR INTRAEPITHELIAL LESION OR MALIGNANCY (NIL) (none) 08/03/2020 1:00 PM CDT [facility] NISM(S) Shift in delfin suggestive of bacterial vaginosis 08/03/2020 1:00 PM CDT [facility] SPECIMEN ADEQUACY Satisfactory for evaluation Endocervical component present 08/03/2020 1:00 PM CDT [facility] HPV REQUEST HPV and PAP 08/03/2020 1:00 PM CDT [facility] Menstrual Status 08/03/2020 1:00 PM CDT [facility] Additional Information 08/03/2020 1:00 PM CDT [facility] Comment: Interpreted at [facility] - [address] [place] [id number] Automated Review Successful 08/03/2020 1:00 PM CDT [facility] Comment:Specimen processed s uccessfully by automated haulage engine operator device, Thin[employer] Imaging System, [employer] ANCILLARY TESTING TRANSPORT MANAGER HPV Ordered, Please see separate report 08/03/2020 1:00 PM CDT [facility] Note The pap test is [...] and malignant lesions. 08/03/2020 1:00 PM CDT [facility] Other (Cervical/Vagina l) 07/22/2020 3:15 PM CDT 07/23/2020 6:22 PM CDT us Baylee Polk MD PATHOLOGY/CYTOLOGY Final Result [facility] [address] [place] [address], [place] * ANTI HIV 1/2 (12/01/2019 5:05 PM CDT) HIV-1/HIV-2 ANTIBODY Non-Reacti ve Non-Reacti ve 12/02/2019 1:58 PM CDT [facility] Comment:HIV-1 p24 and HIV-1/ HIV-2 Ab not detected. Blood BLOOD SPECIMEN / Unknown Venipuncture / Unknown 12/01/2019 5:05 PM CDT 12/01/2019 5:06 PM CDT us Lizette Goldsmith MD SEND OUTS Final Resul t [facility] [address] [place] [address], from Last 3 Months or Most Recently Relevant to Health Maintenance Insurance [address] [place] [id number] [facility] [place] [id number] [place] [id number] * Guarantor: [facility] [employer] [employer] Account Type Relation to Patient Date of Phone Billing Address Occ Health/French Other FAMILY PLAN - [facility] [address] [facility] [address] [place] [phone] Advance Directives * Full Code (Latest Code [...] 8:17 PM 02/18/2014 3:58 PM Care Teams Marble Machine Operator Relationship Specialty Start Date End Date Pcp, No . PCP - General 08/12/22
[2024-06-15 11:04] LABS: Chloride* 104 mmol/L (96-114); Potassium* 4.2 mmol/L (3.6-5.1); Sodium* 138 mmol/L (135-149)
[2024-06-15 11:07] LABS: Anion Gap 7 mEq/L (7-15); Blood Urea Nitrogen* 11 mg/dL (5-24); Carbon Dioxide* 27 mmol/L (20-32); Creatinine* 0.5 mg/dL (0.5-1.5); Est. Creatinine Clearance* 135.61; Estimated Glomerular Filt Rate 125 ml/min; Glucose* 98 mg/dL (60-115)
[2024-06-15 11:08] LABS: Calcium* 9.4 mg/dL (8.4-10.6)
[2024-06-15 11:14] LABS: RBC Urine 0-2 (0-2); Squamous Epithelial Cell Urine Few (None-Few); WBC Urine 0-2 (0-5)
== END 2024-06-15 14:00 | disposition home or self-care (01) ==
PROVIDERS: Emergency Provider Student in an Organized Health Care Education/Training Program
DX: N93.9 Abnormal uterine and vaginal bleeding, unspecified (principal)
CPT/HCPCS: 36415; 76830; 76856; 80048; 81001; 81025; 85025; 93976; 99283; 99284